=== PATIENT | female | born 1930 | race Caucasian/White ===

== ENCOUNTER 2018-03-20 10:35 | Day surgery (SDC) | payer OTHER ==
[2018-03-19 10:55] VITALS: BMI 32.8
[2018-03-20] MEDS ORDERED: LIDOCAINE HCL 1%, 10 MG/ML (20ML VIAL) ONE (11:38)
[2018-03-20] MEDS ORDERED: BUPIVACAINE HCL/PF 0.5% (5MG/ML) 10 ML VIAL ONE (11:38)
[2018-03-20] MEDS ORDERED: PROPOFOL 20 ML ONE (12:00)
[2018-03-20] MEDS ORDERED: CEFAZOLIN 1 GM/D5W 1 GM/50 ML BAG IVPB ONE (12:05)
[2018-03-20] MEDS ORDERED: LIDOCAINE HCL 2% (20ML MULTI-DOSE VIAL) NR ONE (12:08)
[2018-03-20] MEDS ORDERED: ONDANSETRON 4 MG/2 ML VIAL ONE (12:09)
[2018-03-20] MEDS ORDERED: DEXAMETHASONE SOD PHOSPHATE 4 MG/1 ML VIAL ONE ×2 (12:10→12:25)
[2018-03-20] MEDS ORDERED: PROMETHAZINE HCL 25 MG/1 ML VIAL IVPB PRN (12:12)
[2018-03-20] MEDS ORDERED: ONDANSETRON 4 MG/2 ML VIAL IVPUSH PRN (12:12)
[2018-03-20] MEDS ORDERED: oxyCODONE HCL 5 MG TABLET PO PRN ×2 (12:12)
[2018-03-20] MEDS ORDERED: rOPINIRole HCL 0.5 MG TABLET PO SCH (14:00)
[2018-03-20 15:08] VITALS: TEMP 97.6
[2018-03-20 15:16] VITALS: BP 140/59; PULSE 68
[2018-03-21] MEDS ORDERED: LOSARTAN POTASSIUM 25 MG TABLET PO SCH (10:00)
--- NOTE | 2018-03-24 16:41 | PATH ---
Surgical Pathology Report Patient Name: LIVE BOB [facility]. Rec. #: [id number] /Age/Gender: 1930 (Age: 87) / F Account: [id number] Location: [facility] Taken: 03/20/2018 Received: 03/20/2018 Reported: 03/24/2018 Physicians: Te Leon Specimen(s) Received A: 5TH METATARSAL HEAD RIGHT FOOT B: HEAD OF PROXIMAL PHALYNX RIGHT FOOT Clinical History Pain and deformity fifth toe right foot Final Diagnosis A. FOOT, RIGHT, FIFTH METATARSAL HEAD, RESECTION: BONE WITH DEGENERATIVE CHANGES. B. FOOT, RIGHT, HEAD OF PROXIMAL PHARYNX, ARTHROPLASTY: BONE WITH DEGENERATIVE CHANGES. Electronically Signed Shannon Romero M.D. Gross Description A. Received in formalin labeled "fifth metatarsal head right foot," is a 1.4 x 1.0 x 0.7 cm mora, irregular portion of bone. The specimen is serially sectioned and entirely submitted in one cassette, following decalcification. B. Received in formalin labeled "head of proximal phalanx right foot," is a 0.8 x 0.5 x 0.4 cm mora, irregular portion of bone. The specimen is bisected and entirely submitted in one cassette, following decalcification. 03/21/201803/21/2018
--- NOTE | 2018-03-25 01:44 | OP ---
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 PROCEDURE: A 5th metatarsal head resection right foot and proximal interphalangeal joint arthroplasty 5th digit right foot. ANESTHESIA: Local with MAC (10.0 mL lidocaine 2% plain used). HEMOSTASIS: Obtained using a pneumatic ankle tourniquet at the right ankle at 250 mmHg. ESTIMATED BLOOD LOSS: Less than 0.5 mL total. PROCEDURE: With the patient's vital signs noted to be stable, she was brought to the operating room and placed on the OR table in the supine position. After general sedation was obtained, local anesthesia was administered and obtained at the 5th MPJ area of the right foot. At this point, a sterile prepping and draping of the right foot was performed. Now the tourniquet was inflated at the right ankle to 250 mmHg. At this point a 3.0 cm dorsal linear incision was made centered just proximal to the 5th MPJ of the right foot. The incision was carefully deepened and the skin and subcutaneous tissues were reflected away from the underlying structures using sharp and blunt dissection. At this point, a linear incision was made in the capsule of the 5th MPJ of the right foot. Now the capsular and periosteal tissues were sharply dissected away from the underlying 5th MPJ and the 5th metatarsal head, in particular. Now, the medial and lateral collateral ligaments of the 5th MPJ were transected. Using a McGlamry elevator, the 5th metatarsal head was dorsiflexed, isolated, and at this point using the sagittal saw, the head of the 5th metatarsal was resected. The osteotomy used to resect the 5th metatarsal head was from distal medial to proximal lateral at approximately a 45 degree angle and this was in the diaphysis of the 5th metatarsal. The area was flushed with sterile saline and now the capsular tissue was reapposed using simple sutures of 3-0 Vicryl. Subcutaneous tissues were closed using simple sutures of 4-0 Vicryl and the skin was closed using a subcuticular stitch of 4-0 Prolene. Now, a 1.0-cm dorsal linear incision was made centered just proximal to the PIPJ of the 5th digit of the right foot. The incision was carefully deepened and the skin and subcutaneous tissues were reflected away from the deeper capsular structures using sharp and blunt dissection. Now, the extensor digitorum longus tendon was transected at the PIPJ level and retracted proximally. Now the medial and lateral collateral ligaments of the PIPJ were transected and the head of the proximal phalanx was resected. The area was flushed with sterile saline and now the extensor digitorum longus tendon was repaired using a simple suture of 4-0 Vicryl. Skin was now closed using simple sutures of 4-0 nylon. Postoperative injectable was introduced to the surgical site, mainly at the 5th MPJ using 2.0 mL of Marcaine 0.5% plain plus 1.5 mL of dexamethasone phosphate. At this point, sterile dressings were placed with compression and now the tourniquet was deflated. Normal capillary filling time was noted instantaneously to all digits of the right foot. The wound expectancy is clean and the prognosis is good. RAMONE DUCKWORTH DPM [id number]
== END 2018-03-20 13:20 | disposition home or self-care (01) ==
LOC: FASU 10:35
PROVIDERS: ATTEND Podiatrist
PROC: 0QBN0ZZ Excision of Right Metatarsal, Open Approach (ICD-10-PCS; 2018-03-20)
PROC: 0SRP0JZ Replacement of Right Toe Phalangeal Joint with Synthetic Substitute, Open Approach (ICD-10-PCS; principal; 2018-03-20 12:32)
DX: M19.071 Primary osteoarthritis, right ankle and foot (principal); M20.41 Other hammer toe(s) (acquired), right foot; M25.571 Pain in right ankle and joints of right foot
CPT/HCPCS: 88304-TC; 88305-TC; 88311-TC